=== PATIENT | male | born 1990 | race African-American/Black ===

== ENCOUNTER 2020-12-31 13:45 | Emergency (ER) | payer OTHER, SELFPAY | END 2020-12-31 15:10 | disposition left against medical advice (07) | LOC: NAV ERS 13:45 | DX: S16.1XXA Strain of muscle, fascia and tendon at neck level, initial encounter (principal); S70.01XA Contusion of right hip, initial encounter; V49.9XXA Car occupant (driver) (passenger) injured in unspecified traffic accident, initial encounter | CPT/HCPCS: 70450; 71250; 72125; 74177; 94760 ==